=== PATIENT | male | born 1975 | race Caucasian/White ===

== ENCOUNTER 2021-03-19 11:55 | Inpatient (IN) | payer OTHER ==
[~2021-03-19] VITALS: Ht 177.8 cm; Wt 93.0 kg
[2021-03-19 12:40] VITALS: BP 110/63
[2021-03-19 13:58] LABS: ABSOLUTE BASOPHILS 0.1 thou/uL (0.0-0.2); ABSOLUTE EOSINOPHILS 0.1 thou/uL (0.0-0.7); ABSOLUTE LYMPHOCYTES 0.9 thou/uL (0.8-5.3); ABSOLUTE MONOCYTES 1.1 thou/uL (0.0-1.2); ABSOLUTE NEUTROPHILS 12.2 thou/uL (1.6-8.1); BASOPHILS 0.8 %; EOSINOPHILS 0.7 %; HEMATOCRIT 39.3 % (42.0-52.0); HEMOGLOBIN 13.5 gm/dL (14.0-18.0); LYMPHOCYTES 6.5 %; MCH 36.3 pg (26.0-34.0); MCHC 34.4 g/dL (28.0-37.0); MCV 105.6 fL (80.0-100.0); MONOCYTES 7.5 %; MPV 7.9 fl. (7.2-11.1); NUCLEATED RBCS 0 /100WBC; PLATELET COUNT* 537 thou/uL (150-400); POLYS 84.5 %; RBC 3.72 mil/uL (4.50-6.00); WBC 14.5 thou/uL (4.0-11.0)
[2021-03-19 14:12] LABS: CALCIUM 9.7 mg/dL (8.5-10.1); CREATININE 1.6 mg/dL (0.6-1.3); POTASSIUM 4.5 mmol/L (3.5-5.1)
[2021-03-19 14:20] LABS: URINE BLOOD TRACE (Negative); URINE CLARITY CLEAR; URINE COLOR DARK YELLOW; URINE GLUCOSE-RANDOM TRACE (Negative); URINE KETONES 1+ (Negative); URINE LEUKOCYTES-REFLEX TRACE (Negative); URINE NITRITE-REFLEX NEGATIVE (Negative); URINE PROTEIN 2+ (Negative)
[2021-03-19 14:21] LABS: ICTOTEST (BILI CONFIRMATORY) Positive (Negative); URINE BILIRUBIN 3+ (Negative)
[2021-03-19 14:24] LABS: SQUAMOUS 4-10 Moderate /LPF (0-3)
[2021-03-19 14:25] LABS: ALBUMIN 2.6 g/dL (3.4-5.0); TOTAL BILIRUBIN 47.6 mg/dL (<0.1-1.0)
[2021-03-19 14:25] LABS: CRYSTALS None Seen /LPF (None Seen); URINE RBC 0-2 Rare /HPF (0-2); URINE WBC-REFLEX 6-15 Few /HPF (0-5)
[2021-03-19 14:27] LABS: COARSE GRANULAR CASTS 4-10 Moderate /LPF (None Seen); FINE GRANULAR CASTS 0-3 Few /LPF (None Seen); HYALINE CASTS >10 Many /LPF (None Seen)
--- NOTE | 2021-03-19 14:40 | EKG ---
[place] [address] ELECTROCARDIOGRAM REPORT Name: GABE ABDULLAHI Room: [facility]#: [id number] Admission: 03/19/21 Attend Phys: Discharge: Date of : 75 Date of Service: 03/19/21 140 Report #: [id number] THIS REPORT FOR: //name// [facility] ED Test Date: 2021-03-19 Test Time: 14:03:09 Pat Name: GABE ABDULLAHI Department: Room: Gender: Mailing Clerk: ORTIZ : 1975 Requested By: Simone Edge Order Number: [id number] MD: Marck Ivy Measurements Intervals [place] Rate: 75 P: 38 CO: 170 QRS: 13 QRSD: 100 T: 20 QT: 376 QTc: 420 Interpretive Statements Sinus rhythm No previous ECG available for comparison Electronically Signed On 03-19-2021 14:39:53 DIVISION ORDER ANALYST by Marck Ivy [email or web address] <ELECTRONICALLY SIGNED> By: Marck Ivy MD, [facility] 03/19/21 1439 140 1403 Marck Ivy MD, FACC /EPI
[2021-03-19 19:48] VITALS: BP 106/68
[2021-03-19 20:10] LABS: MAGNESIUM 2.1 mg/dL (1.8-2.4); PHOSPHORUS* 3.3 mg/dL (2.5-4.9)
[2021-03-19 23:48] VITALS: BP 109/66
[2021-03-20] VITALS (8 sets, daily range): BP systolic 99–118; BP diastolic 51–78
--- NOTE | 2021-03-20 09:20 | NUR ---
Pt is admitted to the hospital on 03/19/21 for UTI, ESLD, and ETOH Abuse. Pt is alert and oriented. Pt lives alone. Pt was previously independent in ADL's and Mobility. Pt fills his prescriptions at [facility] in [place] but reports he would like to move them to the [facility] on [address] [facility]. Pt reports he has seen his PCP recently. Offered ETOH treatment resources but pt refused. Anticipate with pt being private pay he will need assistance with medications. CM to continue to follow for discharge planning.
[2021-03-20 11:07] LABS: INR 1.4; PROTIME 13.7 Seconds (9.20-11.50)
[2021-03-20 11:14] LABS: HEMATOCRIT 35.5 % (42.0-52.0); HEMOGLOBIN 11.8 gm/dL (14.0-18.0); MCH 36.1 pg (26.0-34.0); MCHC 33.3 g/dL (28.0-37.0); MCV 108.4 fL (80.0-100.0); MPV 8.2 fl. (7.2-11.1); NUCLEATED RBCS 0 /100WBC; RBC 3.28 mil/uL (4.50-6.00); RDW-CV 14.8 % (10.5-14.5)
[2021-03-20 11:20] LABS: PLATELET COUNT* 429 thou/uL (150-400)
[2021-03-20 12:00] LABS: ABSOLUTE LYMPHOCYTES 1.1 thou/uL (0.8-5.3); ABSOLUTE MONOCYTES 0.8 thou/uL (0.0-1.2); ABSOLUTE NEUTROPHILS 10.1 thou/uL (1.6-8.1); MACROCYTES 1+; PLATELET ESTIMATE INCREASED
[2021-03-20 12:02] LABS: ALBUMIN 2.1 g/dL (3.4-5.0); CALCIUM 8.9 mg/dL (8.5-10.1); CREATININE 1.3 mg/dL (0.6-1.3); POTASSIUM 3.9 mmol/L (3.5-5.1); TOTAL BILIRUBIN 38.7 mg/dL (<0.1-1.0)
[2021-03-20 12:34] LABS: TOTAL PROTEIN 5.5 g/dL (6.4-8.2)
--- NOTE | 2021-03-20 16:23 | NUR ---
Patient is A+Ox4, is able to make his needs and wants known. Up ad-justa in room has only been up to go to rest room. Patient is jaundiced skin is very yellow/orange. Sclera of both eyes are yellow. LCTA, respirations are even and non labored, BS+x4, abdomen soft and non tender, no edema noted to extremeties. Patient does not c/o any pain, had PRN 25mg Benadryl x 1 this shift for itching. Diet is regular, appetite is fair. Medications and treatments given per physcian orders. Will continue with the plan of care.
--- NOTE | 2021-03-21 00:56 | NUR ---
ASSUMED CARE OF PT AT 1900. PT IS ALERT AND ORIENTED. VSS. PERRLA. PT IS JAUNDICE FROM LIVER FAILURE. PT REPORTS FEELING CLOUDY. PT IS IN SINUS RYTHM ON THE TELEMETRY. PT IS RESTING COMFORTABLY IN BED. RESPIRATIONS ARE EVEN AND NONLABORED. WILL CONTINUE TO MONITOR PT.
[2021-03-21 04:00] VITALS: BP 119/76
[2021-03-21 08:20] VITALS: BP 113/76
[2021-03-21 09:09] LABS: ABSOLUTE LYMPHOCYTES 0.8 thou/uL (0.8-5.3); ABSOLUTE MONOCYTES 0.8 thou/uL (0.0-1.2); ABSOLUTE NEUTROPHILS 14.6 thou/uL (1.6-8.1); BASOPHILS 0.2 %; HEMATOCRIT 38.1 % (42.0-52.0); HEMOGLOBIN 12.9 gm/dL (14.0-18.0); LYMPHOCYTES 4.8 %; MCH 35.4 pg (26.0-34.0); MCHC 33.8 g/dL (28.0-37.0); MCV 104.7 fL (80.0-100.0); MONOCYTES 4.7 %; MPV 7.8 fl. (7.2-11.1); NUCLEATED RBCS 0 /100WBC; POLYS 90.3 %; RBC 3.64 mil/uL (4.50-6.00); RDW-CV 14.7 % (10.5-14.5); WBC 16.1 thou/uL (4.0-11.0)
[2021-03-21 09:10] LABS: PLATELET COUNT* 555 thou/uL (150-400)
[2021-03-21 09:32] LABS: ALBUMIN 2.3 g/dL (3.4-5.0); CALCIUM 9.3 mg/dL (8.5-10.1); CREATININE 1.1 mg/dL (0.6-1.3); TOTAL BILIRUBIN 43.7 mg/dL (<0.1-1.0)
[2021-03-21 10:12] LABS: TOTAL PROTEIN 6.2 g/dL (6.4-8.2)
[2021-03-21 12:19] VITALS: BP 129/79
[2021-03-21 16:17] VITALS: BP 115/79
--- NOTE | 2021-03-21 17:04 | NUR ---
PT IS UP AD-MARIO . PT IS A&O X 4. PT IS ON RM AIR. PT HAS IV IN RT AC. PT IS SINUS RYM ON TELE MONTIOR. PT HAD NO COMPLAINTS OF PAIN. PT DOES HAVE JAUNDICE DUE TO LIVER FAILURE. PT IS HEART HEALTHY DIET. PT IS RESTING IN BED, WITH CALL LIGHT IN REACH. .
[2021-03-21 20:00] VITALS: BP 116/72
[2021-03-21 21:06] LABS: IgG 1022 mg/dL (603-1613); IgM 135 mg/dL (20-172)
[2021-03-21 23:06] LABS: TESTOSTERONE 407 ng/dL (264-916)
[2021-03-22 01:13] VITALS: BP 121/76
--- NOTE | 2021-03-22 03:47 | NUR ---
PT PLEASANT AND TALKATIVE. SKIN VERY JAUNDICE, C/O ITCHING. TELEMETRY ON SHOWING SR.
[2021-03-22 05:22] VITALS: BP 117/71
[2021-03-22 08:03] VITALS: BP 120/79
[2021-03-22 14:24] VITALS: BP 120/79
--- NOTE | 2021-03-22 14:34 | NUR ---
PT DISCHARGED HOME. COPY OF DISCHARGE PAPERWORK TO PT WITH EXPLAINATION. PT VERBALIZED UNDERSTANDING. PRESCRIPTIONS GIVEN TO PT. IV ACCESS REMOVED.
[2021-03-22 18:06] LABS: ANA INTERPRETATION Negative (())
[2021-03-23 16:06] LABS: CERULOPLASMIN 44.8 mg/dL (16.0-31.0)
[2021-03-24 02:05] LABS: HEPATITIS B SURFACE AG Negative (Negative)
== END 2021-03-22 14:35 | disposition home or self-care (01) | DRG 433 ==
LOC: M.ERS 11:55 → M.TBA-ER 15:48 → M.2W 03-20 00:37
PROVIDERS: Family Medicine; Internal Medicine Gastroenterology; Nurse Practitioner Adult Health; ADMIT Internal Medicine; ATTEND Internal Medicine
DX: K70.10 Alcoholic hepatitis without ascites (principal); N39.0 Urinary tract infection, site not specified; E46 Unspecified protein-calorie malnutrition; K76.6 Portal hypertension; F10.10 Alcohol abuse, uncomplicated; E80.6 Other disorders of bilirubin metabolism; K72.10 Chronic hepatic failure without coma; I10 Essential (primary) hypertension; R16.0 Hepatomegaly, not elsewhere classified; E53.8 Deficiency of other specified B group vitamins; E66.3 Overweight; K76.0 Fatty (change of) liver, not elsewhere classified; K31.89 Other diseases of stomach and duodenum; Z20.822 Contact with and (suspected) exposure to COVID-19; Z68.29 Body mass index [BMI] 29.0-29.9, adult; Z88.6 Allergy status to analgesic agent; Z28.21 Immunization not carried out because of patient refusal

== ENCOUNTER → 2021-04-03 | Outpatient (CLI) | payer OTHER ==
[~2021-04-03] MED LIST: BLOOD PRESSURE PILL; PREDNISONE 10 M10 MG PO
[2021-04-03 16:13] LABS: HEMATOCRIT 30.3 % (42.0-52.0); HEMOGLOBIN 10.1 gm/dL (14.0-18.0); MCH 33.8 pg (26.0-34.0); MCHC 33.2 g/dL (28.0-37.0); MCV 101.9 fL (80.0-100.0); MPV 7.9 fl. (7.2-11.1); NUCLEATED RBCS 0 /100WBC; PLATELET COUNT* 387 thou/uL (150-400); RBC 2.98 mil/uL (4.50-6.00); RDW-CV 13.4 % (10.5-14.5); WBC 26.5 thou/uL (4.0-11.0)
[2021-04-03 16:21] LABS: INR 1.1; PROTIME 10.9 Seconds (9.20-11.50)
[2021-04-03 16:52] LABS: ABSOLUTE LYMPHOCYTES 0.3 thou/uL (0.8-5.3); ABSOLUTE MONOCYTES 0.5 thou/uL (0.0-1.2); ABSOLUTE NEUTROPHILS 25.7 thou/uL (1.6-8.1); PLATELET ESTIMATE ADEQUATE
[2021-04-03 16:53] LABS: MACROCYTES Occasional
[2021-04-03 17:01] LABS: ALBUMIN 2.8 g/dL (3.4-5.0); CREATININE 1.1 mg/dL (0.6-1.3); POTASSIUM 4.4 mmol/L (3.5-5.1); TOTAL BILIRUBIN 12.4 mg/dL (<0.1-1.0); TOTAL PROTEIN 6.1 g/dL (6.4-8.2)
== END ==
LOC: M.LAB 15:49
PROVIDERS: ATTEND Internal Medicine Gastroenterology
DX: K70.10 Alcoholic hepatitis without ascites (principal)

== ENCOUNTER 2021-04-04 22:13 | Inpatient (IN) | payer OTHER ==
[~2021-04-04] VITALS: Ht 177.8 cm; Wt 88.7 kg
[2021-04-04 22:16] VITALS: BP 136/92
[2021-04-04] MEDS ORDERED: PREDNISONE 10 M10 MG PO (22:24)
[2021-04-04] MEDS ORDERED: BLOOD PRESSURE PILL (22:25)
[2021-04-04 22:53] LABS: ABSOLUTE EOSINOPHILS 0.1 thou/uL (0.0-0.7); ABSOLUTE LYMPHOCYTES 1.5 thou/uL (0.8-5.3); ABSOLUTE MONOCYTES 1.7 thou/uL (0.0-1.2); BASOPHILS 0.1 %; EOSINOPHILS 0.2 %; HEMATOCRIT 30.9 % (42.0-52.0); HEMOGLOBIN 10.2 gm/dL (14.0-18.0); LYMPHOCYTES 4.3 %; MCH 33.5 pg (26.0-34.0); MCHC 33.1 g/dL (28.0-37.0); MCV 101.3 fL (80.0-100.0); MONOCYTES 4.8 %; MPV 7.9 fl. (7.2-11.1); NUCLEATED RBCS 0 /100WBC; PLATELET COUNT* 394 thou/uL (150-400); POLYS 90.6 %; RBC 3.05 mil/uL (4.50-6.00); RDW-CV 13.3 % (10.5-14.5); WBC 35.3 thou/uL (4.0-11.0)
[2021-04-04 23:01] LABS: CALCIUM 9.4 mg/dL (8.5-10.1); CREATININE 1.5 mg/dL (0.6-1.3); POTASSIUM 3.6 mmol/L (3.5-5.1)
[2021-04-04 23:03] LABS: INR 1.1; PROTIME 10.9 Seconds (9.20-11.50)
[2021-04-04 23:11] LABS: ALBUMIN 2.8 g/dL (3.4-5.0); MAGNESIUM 1.9 mg/dL (1.8-2.4); TOTAL BILIRUBIN 10.7 mg/dL (<0.1-1.0); TOTAL PROTEIN 6.6 g/dL (6.4-8.2)
[2021-04-05 06:30] VITALS: BP 137/82
--- NOTE | 2021-04-05 09:40 | EKG ---
[place] [address] ELECTROCARDIOGRAM REPORT Name: GABE ABDULLAHI Room: [address]R.#: [id number] Admission: 04/05/21 Attend Phys: Yohana Dias, Discharge: Date of : 75 Date of Service: 04/04/212218 Report #: [id number] THIS REPORT FOR: //name// [facility] ED Test Date: 2021-04-04 Test Time: 22:19:40 Pat Name: GABE ABDULLAHI Department: Room: [facility] Gender: M Acute Care Physician: DESMOND : 1975 Requested By: Kera Silva Order Number: [id number] MD: Harris Antoine Measurements Intervals [place] Rate: 105 P: 53 FL: 140 QRS: 23 QRSD: 81 T: 26 QT: 322 QTc: 426 Interpretive Statements Sinus tachycardia Compared to ECG 03/19/2021 14:03:09 Sinus rhythm no longer present Electronically Signed On 04-05-2021 9:40:15 GROCERY WORKER by Harris Antoine [email or web address] <ELECTRONICALLY SIGNED> By: Harris Antoine MD, [facility] 04/05/21 0940 2219 2219 Harris Antoine MD, [facility] /EPI
[2021-04-05 16:12] LABS: HEMATOCRIT 29.7 % (42.0-52.0); MCH 34.3 pg (26.0-34.0); MCHC 33.7 g/dL (28.0-37.0); MCV 101.7 fL (80.0-100.0); MPV 7.8 fl. (7.2-11.1); NUCLEATED RBCS 0 /100WBC; PLATELET COUNT* 355 thou/uL (150-400); RBC 2.92 mil/uL (4.50-6.00); RDW-CV 13.3 % (10.5-14.5)
[2021-04-05 16:20] LABS: CALCIUM 9.1 mg/dL (8.5-10.1); POTASSIUM 3.6 mmol/L (3.5-5.1)
[2021-04-05 16:39] LABS: ABSOLUTE LYMPHOCYTES 2.2 thou/uL (0.8-5.3); ABSOLUTE MONOCYTES 0.5 thou/uL (0.0-1.2); ABSOLUTE NEUTROPHILS 24.3 thou/uL (1.6-8.1); PLATELET ESTIMATE ADEQUATE
[2021-04-05 17:25] LABS: ESR (SEDRATE) 99 mm/hr (0-15)
[2021-04-05 19:28] LABS: URINE BLOOD NEGATIVE (Negative); URINE CLARITY CLEAR; URINE COLOR YELLOW; URINE GLUCOSE-RANDOM NEGATIVE (Negative); URINE KETONES NEGATIVE (Negative); URINE LEUKOCYTES NEGATIVE (Negative); URINE NITRITE NEGATIVE (Negative); URINE PROTEIN NEGATIVE (Negative); URINE SPECIFIC GRAVITY 1.015 (1.005-1.030); URINE UROBILINOGEN 0.2 E.U./dl (0.2-1.0)
[2021-04-05 19:29] LABS: URINE BILIRUBIN 2+ (Negative)
[2021-04-05 19:30] VITALS: BP 141/85
[2021-04-05 19:31] LABS: ICTOTEST (BILI CONFIRMATORY) Positive (Negative)
[2021-04-05 23:30] VITALS: BP 141/93
[2021-04-06] VITALS (7 sets, daily range): BP systolic 122–151; BP diastolic 77–95
[2021-04-06 13:00] LABS: ABSOLUTE LYMPHOCYTES 0.5 thou/uL (0.8-5.3); ABSOLUTE MONOCYTES 0.2 thou/uL (0.0-1.2); ABSOLUTE NEUTROPHILS 24.9 thou/uL (1.6-8.1); BASOPHILS 0.1 %; HEMATOCRIT 28.5 % (42.0-52.0); HEMOGLOBIN 9.6 gm/dL (14.0-18.0); LYMPHOCYTES 1.9 %; MCH 34.4 pg (26.0-34.0); MCHC 33.9 g/dL (28.0-37.0); MCV 101.5 fL (80.0-100.0); MONOCYTES 0.8 %; MPV 7.8 fl. (7.2-11.1); NUCLEATED RBCS 0 /100WBC; PLATELET COUNT* 338 thou/uL (150-400); POLYS 97.2 %; RBC 2.81 mil/uL (4.50-6.00); RDW-CV 13.1 % (10.5-14.5); WBC 25.6 thou/uL (4.0-11.0)
[2021-04-06 13:16] LABS: ALBUMIN 2.7 g/dL (3.4-5.0); CALCIUM 9.2 mg/dL (8.5-10.1); CREATININE 0.9 mg/dL (0.6-1.3); MAGNESIUM 2.1 mg/dL (1.8-2.4); TOTAL BILIRUBIN 13.2 mg/dL (<0.1-1.0); TOTAL PROTEIN 6.7 g/dL (6.4-8.2)
[2021-04-06 13:18] LABS: POTASSIUM 4.7 mmol/L (3.5-5.1)
[2021-04-07 03:44] LABS: HEMATOCRIT 23.8 % (42.0-52.0); MCH 33.8 pg (26.0-34.0); MCHC 33.6 g/dL (28.0-37.0); MCV 100.7 fL (80.0-100.0); RBC 2.36 mil/uL (4.50-6.00); RDW-CV 13.1 % (10.5-14.5)
[2021-04-07 04:00] VITALS: BP 102/61
[2021-04-07 04:00] LABS: ALBUMIN 2.3 g/dL (3.4-5.0); CALCIUM 8.7 mg/dL (8.5-10.1); CREATININE 1.1 mg/dL (0.6-1.3); MAGNESIUM 2.1 mg/dL (1.8-2.4); POTASSIUM 3.8 mmol/L (3.5-5.1); TOTAL BILIRUBIN 9.5 mg/dL (<0.1-1.0); TOTAL PROTEIN 5.8 g/dL (6.4-8.2)
[2021-04-07 08:05] VITALS: BP 114/66
[2021-04-07 16:00] VITALS: BP 118/66
[2021-04-07 20:12] VITALS: BP 116/70
[2021-04-08] VITALS: BP 124/64
[2021-04-08 04:12] LABS: ABSOLUTE LYMPHOCYTES 0.9 thou/uL (0.8-5.3); ABSOLUTE MONOCYTES 0.5 thou/uL (0.0-1.2); ABSOLUTE NEUTROPHILS 14.7 thou/uL (1.6-8.1); BASOPHILS 0.3 %; HEMATOCRIT 21.7 % (42.0-52.0); HEMOGLOBIN 7.3 gm/dL (14.0-18.0); LYMPHOCYTES 5.8 %; MCH 33.7 pg (26.0-34.0); MCHC 33.5 g/dL (28.0-37.0); MCV 100.6 fL (80.0-100.0); MONOCYTES 3.1 %; NUCLEATED RBCS 0 /100WBC; PLATELET COUNT* 249 thou/uL (150-400); POLYS 90.8 %; RBC 2.16 mil/uL (4.50-6.00); RDW-CV 13.2 % (10.5-14.5); WBC 16.2 thou/uL (4.0-11.0)
[2021-04-08 04:25] LABS: INR 1.1
[2021-04-08 04:30] LABS: ALBUMIN 2.2 g/dL (3.4-5.0); CALCIUM 8.6 mg/dL (8.5-10.1); CREATININE 1.3 mg/dL (0.6-1.3); TOTAL BILIRUBIN 7.1 mg/dL (<0.1-1.0); TOTAL PROTEIN 5.5 g/dL (6.4-8.2)
[2021-04-08 08:00] VITALS: BP 124/76
--- NOTE | 2021-04-08 10:05 | CON ---
[facility] [address] [place] [address] CONSULTATION Name: GABE ABDULLAHI Room: [address] M.R.#: [id number] Admission: 04/05/21 Attend Phys: Yohana Dias MD Discharge: Date of : 75 Report #: [id number] THIS REPORT FOR: cc: Glenn Summers MD, Anthony MD Vardakis, Gregory DO ~ cc: Jeff Jain MD DATE OF CONSULTATION: 04/06/2021 REFERRING PHYSICIAN: Jeff Jain MD REASON FOR CONSULTATION: Chronic liver disease. ASSESSMENT AND PLAN: 1. Facial cellulitis, requiring antibiotic treatment and short course of steroids. 2. Alcoholic hepatitis, much improved with steroid treatment, but in the face of his current infection, we will need to discontinue the steroids altogether. His current MELD score is 17, where previously, it was 32 and as such, this is markedly improved. 3. Dysphagia with history of recent oral thrush being notable. 4. Recent worsening of his transaminase is likely related to #1 above. The patient had full serologic workup to evaluate for other source of chronic liver disease during his last hospital stay and these were completely negative. RECOMMENDATIONS: 1. We will discontinue the methylprednisolone and avoid all steroids at this time. He has also been instructed to discontinue the steroids when he gets out of the hospital. 2. Continue with antibiotic therapy for his facial cellulitis and if necessary, we would consult ENT for their help as well. That being said, the patient is not a candidate for any type of surgery given the degree of his hepatic dysfunction. He cannot undergo any surgery that would require general anesthesia as this can decompensate his liver disease. 3. I reinforced the need for the patient to be enrolled in some of alcohol rehab program and support group, but he states he does not need to enroll in anything. I told him this would be absolutely necessary if his liver should continue to deteriorate to the point where he would require liver transplantation. I made this very clear to him the last time he was here in the hospital, but he still is not going to do so. 4. We will continue to make sure that all the present current medications are dose based on his liver synthetic function. 5. If he should continue to have issues with dysphagia, we may need to proceed with upper endoscopy, but since he had one done at [place] within [place] [address] CONSULTATION Name: GABE ABDULLAHI Room: [address] [facility]#: [id number] Admission: 04/05/21 Attend Phys: Yohana Dias MD Discharge: Date of : 75 Report #: [id number] months, which was unremarkable, we will hold off on the same. 6. I have discussed the plans to Harris as he is agreeable to almost everything (see #3 above). 7. Unless there is anything urgent that requires our urgent attention, we will see him again on Thursday, 04/08. HISTORY OF PRESENT ILLNESS: The patient is a 45-year-old white male with recently diagnosed alcoholic hepatitis who was initiated on steroid treatment for the same back in late March of this year. Please refer to our previous consultation regarding his history. He was doing well until he started having issues with a lot of pain around his face and had drainage, a lot of swelling and found to have facial cellulitis. He has currently been receiving steroids at home for alcoholic hepatitis and has become less jaundiced over the last few weeks. He is not drinking one bit of alcohol. He continues to drink some nonalcoholic beverages and I told him he needed to avoid all those altogether, but again, he did not heed my warning. He denies any complaints at this time of dysphagia, odynophagia, nausea, vomiting, hematemesis, melena or hematochezia. He has had no problems with his bowels or bowel frequency. He has not had any bleeding. He has lost considerable amount of weight over the last several weeks secondary to the catabolic state of his alcoholic hepatitis and he wants to know when he can start working out again. I told him that he would have to wait until he was in better shape and alike. CURRENT MEDICATIONS: At home include methylprednisolone and a blood pressure medication, which he does not know the name of. PAST MEDICAL HISTORY: Remarkable for hypertension, end-stage liver disease secondary to chronic alcohol abuse with the patient having discontinued alcohol the first part of 03/2021. PAST SURGICAL HISTORY: He has had previous ganglion cyst removal, ankle surgery. Otherwise, he has been healthy. SOCIAL HISTORY: The patient is a nonsmoker. He quit drinking 2 weeks prior to admission. From his last hospital stay, he had previously drank 4-5 shots a day at the very least for up to 25 years. He has no history of drug abuse. PHYSICAL EXAMINATION: HEENT: Revealed much less jaundiced than he previously was. He is not encephalopathic. He does have some irritation around his nasal area without evidence for any obvious abscess or pressure. There is not any obvious cellulitis that would require any surgical intervention. His mouth did not reveal any obvious thrush. NECK: He has [place] [address] CONSULTATION Name: GABE ABDULLAHI Room: [address]#: [id number] Admission: 04/05/21 Attend Phys: Yohana Dias MD Discharge: Date of : 75 Report #: [id number] CARDIOPULMONARY: Revealed a regular rate and rhythm. LUNGS: Clear. ABDOMEN: Soft and not particularly tender. No rebound or guarding noted. LABORATORY DATA: His laboratory tests from admission on the revealed a white count of 26.5; hemoglobin 10.1; platelet count 387,000; MCV is 101.9 and RDW is 13.4. With hydration, his white count is 27.0, hemoglobin 10.0 and platelet count 355,000. His sed rate is 99. On admission, his sodium 136, potassium 4.4, chloride 102, bicarb 22, BUN 18, creatinine 1.1. Total bilirubin 12.4, alkaline phosphatase was 244, AST 162 and ALT was 379. Laboratory tests from the revealed a bilirubin of 10.7, alkaline phosphatase 274. His AST is 163 and ALT was 376, albumin 2.8. His creatinine went to 1.5. His protime is 10.9 with an INR of 1.1. By comparison, his laboratory test on 03/24 revealed a white count of 16.1; hemoglobin 12.9; platelet count 555,000; MCV 104.7; RDW 14.7. His differential was normal. His sodium was 134, potassium 4.0, chloride 103, bicarb is 16. His BUN is 20, creatinine 1.1. His bilirubin at that time was 43.7, alkaline phosphatase 211, AST 225 and ALT was 183. His albumin was 2.3. During his last hospital stay, his iron saturation was 31% with a ferritin of 6830 secondary to inflammation from liver disease. His folic acid level was only 3.9, B12 was 792. His testosterone levels revealed a testosterone of 407, which is normal limits; free testosterone of 8.1, which is normal and a total testosterone was 70.6, which is on the low side (normal 264-916). His alpha fetoprotein was 2.2. Ceruloplasmin 44.8. His acute hepatitis panel was completely negative. His testing for previous exposure to hepatitis A and B were positive for hepatitis A and B indicating previous infection and/or vaccination. His MARTINA was negative. Mitochondrial antibody was negative. Smooth muscle antibody was negative. His total IgG was 1022, IgM 135, alpha-[address] scan of the abdomen and pelvis performed on 06/03 was reviewed, which revealed marked improvement in the fatty infiltration that was previously noted on his CT from 03/19. He has some high-density material noted within the gallbladder suggestive of sludge or gallstones, but no biliary ductal dilation. The remainder of the CT scan was unremarkable. He did have evidence for coronary artery and aortic atherosclerosis greater than expected for his age with a recommendation to correlate with cardiac risk factors. DISCUSSION: At the present time, the patient has facial cellulitis, [place] [address] CONSULTATION Name: GABE ABDULLAHI Room: [address] IN [facility]#: [id number] Admission: 04/05/21 Attend Phys: Yohana Dias MD Discharge: Date of : 75 Report #: [id number] recovering from alcoholic hepatitis. He is no longer a candidate to continue with steroids due to an infection, so we will discontinue the methylprednisolone altogether. We will continue to follow the patient while in the hospital. He definitely needs to be on folic acid supplementation and we will follow him during his hospital stay. <ELECTRONICALLY SIGNED> By: Toan Robles DO 04/08/21 1005 1119 1700Toan Robles DO /nt
[2021-04-08 15:41] VITALS: BP 125/71
[2021-04-08 21:41] VITALS: BP 112/63
[2021-04-09 04:37] VITALS: BP 125/84
[2021-04-09 05:01] LABS: HEMOGLOBIN 8.2 gm/dL (14.0-18.0); MCH 33.6 pg (26.0-34.0); MPV 7.6 fl. (7.2-11.1); NUCLEATED RBCS 0 /100WBC; PLATELET COUNT* 258 thou/uL (150-400); RBC 2.43 mil/uL (4.50-6.00); RDW-CV 12.9 % (10.5-14.5); WBC 15.7 thou/uL (4.0-11.0)
[2021-04-09 05:20] LABS: ALBUMIN 2.5 g/dL (3.4-5.0); CALCIUM 8.7 mg/dL (8.5-10.1); CREATININE 1.1 mg/dL (0.6-1.3); POTASSIUM 3.4 mmol/L (3.5-5.1); TOTAL BILIRUBIN 7.2 mg/dL (<0.1-1.0); TOTAL PROTEIN 5.9 g/dL (6.4-8.2)
[2021-04-09 06:29] LABS: % SATURATION 30 % (20-39); IRON 52 ug/dL (50-175)
[2021-04-09 07:09] LABS: ABSOLUTE LYMPHOCYTES 3.1 thou/uL (0.8-5.3); ABSOLUTE MONOCYTES 0.8 thou/uL (0.0-1.2); ABSOLUTE NEUTROPHILS 11.8 thou/uL (1.6-8.1); METAMYELOCYTES 1 %; MYELOCYTES 1 %
[2021-04-09 07:11] LABS: PLATELET ESTIMATE ADEQUATE
[2021-04-09 07:34] LABS: ESR (SEDRATE) 113 mm/hr (0-15)
[2021-04-09 08:00] VITALS: BP 116/63
[2021-04-09 16:06] VITALS: BP 127/76
[2021-04-09 20:30] VITALS: BP 114/65
[2021-04-10 07:52] VITALS: BP 121/74
[2021-04-10] MEDS ORDERED: BACTRIM DS TAB1 EAC1 PO (13:42)
[2021-04-10] MEDS ORDERED: MUPIROCIN1 GM TOP (13:42)
[2021-04-10 14:02] VITALS: BP 121/74
[2021-04-10 14:07] VITALS: BP 121/74
== END 2021-04-10 14:50 | disposition home or self-care (01) | DRG 871 ==
LOC: M.ERS 22:13 → M.2W 04-05 00:59 → M.TBA-ER 04-05 00:59 → M.2W 04-06 01:30
PROVIDERS: Emergency Medicine; Internal Medicine; Internal Medicine Gastroenterology; ADMIT Internal Medicine; ATTEND Internal Medicine
DX: A41.9 Sepsis, unspecified organism (principal); K85.90 Acute pancreatitis without necrosis or infection, unspecified; B37.0 Candidal stomatitis; K70.10 Alcoholic hepatitis without ascites; J34.0 Abscess, furuncle and carbuncle of nose; Z20.822 Contact with and (suspected) exposure to COVID-19; I10 Essential (primary) hypertension; E86.0 Dehydration; R13.10 Dysphagia, unspecified; E87.6 Hypokalemia; F10.10 Alcohol abuse, uncomplicated; K72.10 Chronic hepatic failure without coma; R74.01 Elevation of levels of liver transaminase levels; E80.6 Other disorders of bilirubin metabolism; D64.9 Anemia, unspecified; Z88.6 Allergy status to analgesic agent; Z82.49 Family history of ischemic heart disease and other diseases of the circulatory system